=== PATIENT | male | born 1940 | race Caucasian/White ===

== ENCOUNTER 2020-11-24 10:54 | Emergency (ER) | payer MEDICARE, OTHER ==
[~2020-11-24 10:54] MED LIST: COREG 6.25MG6.25 MG PO; DULOXETINE HCL20 MG PO; GLIMEPIRIDE4 MG PO; KEFLEX500 MG PO; LASIX40 MG PO; NORCO 5/3251 EACH PO; NORVASC5 MG PO; PLAVIX75 MG PO; PRINIVIL20 MG PO; SPS15 GM/60 M PO; SYNTHROID50 MCG PO
[2020-11-24 12:39] LABS: CORONAVIRUS 2019 SARS-COV-2 NEGATIVE (NEGATIVE); INFLUENZA A NAA NEGATIVE (NEGATIVE)
[2020-11-24 13:10] LABS: BASOPHIL 0.5 % (0-2); EOSINOPHIL 6.9 % (0-7); HCT 41.6 % (42.0-52.0); HGB 13.1 g/dl (13.2-18.0); LYMPHOCYTE 17.1 % (15-48); MCHC 31.5 g/dL (32.0-36.0); MCV 101.5 fL (78.0-100.0); MONOCYTE 7.9 % (0-12); MPV 11.8 fL (6.0-9.5); NEUTROPHIL 67.1 % (41-80); NRBC 0; PLT 176 K/uL (150-400); RDW 14.6 % (11.5-14.0); WBC 10.4 K/uL (4.0-10.5)
[2020-11-24 13:31] LABS: INR 1.15 (0.9-1.2); PTT 29.3 SECONDS (22.2-34.7)
[2020-11-24 13:35] LABS: IRON % SATURATION 42.3 %SAT (20-50)
[2020-11-24 13:47] LABS: PRO-BNP 1671 pg/mL (<450)
[2020-11-24 13:53] LABS: ALBUMIN 3.7 g/dL (3.4-5.0); BILIRUBIN - TOTAL 0.4 mg/dL (0.2-1.0); BUN/CREAT RATIO (CALC) 16.6 RATIO; CREATININE 3.31 mg/dL (0.67-1.17); GLOBULIN (CALCULATION) 3.1 g/dL; MAGNESIUM 2.2 mg/dL (1.8-2.4); PHOSPHORUS 4.6 mg/dL (2.6-4.7); POTASSIUM 5.8 mmol/L (3.5-5.1); TOTAL PROTEIN 6.8 g/dL (6.4-8.2)
== END 2020-11-24 16:00 | disposition home or self-care (01) ==
LOC: FER 10:54
PROVIDERS: Emergency Medicine
DX: E87.6 Hypokalemia (principal); I12.9 Hypertensive chronic kidney disease with stage 1 through stage 4 chronic kidney disease, or unspecified chronic kidney disease; N18.4 Chronic kidney disease, stage 4 (severe); I44.7 Left bundle-branch block, unspecified; I49.3 Ventricular premature depolarization; Z20.822 Contact with and (suspected) exposure to COVID-19
CPT/HCPCS: 36415; 71045; 80053; 82550; 82728; 83540; 83550; 83605; 83615; 83735; 83880; 84100; 84145; 84443; 84484; 85025; 85610; 85730; 93005; 94664; U0002

== ENCOUNTER 2021-03-11 08:50 | Emergency (ER) | payer MEDICARE, OTHER ==
[2021-03-11 09:35] LABS: BASOPHIL 0.2 % (0-2); EOSINOPHIL 0.2 % (0-7); HGB 12.1 g/dl (13.2-18.0); LYMPHOCYTE 6.3 % (15-48); MCHC 30.3 g/dL (32.0-36.0); MCV 105.8 fL (78.0-100.0); MONOCYTE 9.1 % (0-12); MPV 12.7 fL (6.0-9.5); NEUTROPHIL 83.3 % (41-80); NRBC 0; PLT 143 K/uL (150-400); RBC 3.78 M/uL (4.70-6.00); RDW 14.6 % (11.5-14.0); WBC 16.4 K/uL (4.0-10.5)
[2021-03-11 09:46] LABS: ALBUMIN 3.5 g/dL (3.4-5.0); BILIRUBIN - TOTAL 0.4 mg/dL (0.2-1.0); CREATININE 4.56 mg/dL (0.67-1.17); GLOBULIN (CALCULATION) 3.5 g/dL
[2021-03-11 10:06] LABS: POTASSIUM 6.6 mmol/L (3.5-5.1)
[2021-03-11 10:45] LABS: CORONAVIRUS 2019 SARS-COV-2 NEGATIVE (NEGATIVE); INFLUENZA A NAA NEGATIVE (NEGATIVE)
== END 2021-03-11 18:00 | disposition other institution (70) ==
LOC: FER 08:50 → FTCU 12:40 → FER 18:00
PROVIDERS: Emergency Medicine
DX: J96.91 Respiratory failure, unspecified with hypoxia (principal); J44.1 Chronic obstructive pulmonary disease with (acute) exacerbation; N18.9 Chronic kidney disease, unspecified; E87.5 Hyperkalemia; J90 Pleural effusion, not elsewhere classified; I25.2 Old myocardial infarction; F17.200 Nicotine dependence, unspecified, uncomplicated; Z20.822 Contact with and (suspected) exposure to COVID-19
CPT/HCPCS: 36415; 36600; 71045; 71250; 80053; 82803; 83605; 83880; 84132; 84145; 84484; 85025; 85379; 87040; 93005; 94664; J0610; J2543; J2930; U0002

== ENCOUNTER 2021-03-28 23:04 | Emergency (ER) | payer MEDICARE, OTHER ==
[2021-03-29 01:11] LABS: BASOPHIL 0.5 % (0-2); EOSINOPHIL 4.9 % (0-7); HCT 35.6 % (42.0-52.0); HGB 11.3 g/dl (13.2-18.0); LYMPHOCYTE 18.7 % (15-48); MCH 32.6 pg (25.0-31.0); MCHC 31.7 g/dL (32.0-36.0); MCV 102.6 fL (78.0-100.0); MONOCYTE 10.9 % (0-12); NEUTROPHIL 63.7 % (41-80); NRBC 0; PLT 171 K/uL (150-400); RBC 3.47 M/uL (4.70-6.00); RDW 14.3 % (11.5-14.0); WBC 8.4 K/uL (4.0-10.5)
[2021-03-29 01:27] LABS: ALBUMIN 3.1 g/dL (3.4-5.0); BILIRUBIN - TOTAL 0.3 mg/dL (0.2-1.0); BUN/CREAT RATIO (CALC) 11.7 RATIO; CREATININE 3.58 mg/dL (0.67-1.17); MAGNESIUM 2.3 mg/dL (1.8-2.4); PHOSPHORUS 5.4 mg/dL (2.6-4.7); TOTAL PROTEIN 7.1 g/dL (6.4-8.2)
[2021-03-29] MEDS ORDERED: DIAZEPAM 5MG TAB5 MG PO (03:04)
== END 2021-03-29 03:34 | disposition home or self-care (01) ==
LOC: FER 23:04
PROVIDERS: Emergency Medicine Emergency Medical Services
DX: R07.89 Other chest pain (principal); R25.2 Cramp and spasm; I44.7 Left bundle-branch block, unspecified; I25.2 Old myocardial infarction; E11.22 Type 2 diabetes mellitus with diabetic chronic kidney disease; N18.6 End stage renal disease; F17.210 Nicotine dependence, cigarettes, uncomplicated; Z99.2 Dependence on renal dialysis; Z95.5 Presence of coronary angioplasty implant and graft; Z87.09 Personal history of other diseases of the respiratory system
CPT/HCPCS: 36415; 36600; 71045; 80053; 82803; 83735; 83880; 84100; 84484; 85025; 94640; 94664; 94760; J3360; J7120

== ENCOUNTER 2021-05-22 20:20 | Emergency (ER) | payer MEDICARE, OTHER ==
[~2021-05-22 20:20] MED LIST changes: +DIAZEPAM 5MG TAB5 MG PO
[2021-05-23] MEDS ORDERED: KEFLEX250 MG PO (00:39)
== END 2021-05-23 00:50 | disposition home or self-care (01) ==
LOC: FER 20:20
DX: S81.801A Unspecified open wound, right lower leg, initial encounter (principal); T82.43XA Leakage of vascular dialysis catheter, initial encounter; E11.22 Type 2 diabetes mellitus with diabetic chronic kidney disease; I12.0 Hypertensive chronic kidney disease with stage 5 chronic kidney disease or end stage renal disease; N18.6 End stage renal disease; I25.10 Atherosclerotic heart disease of native coronary artery without angina pectoris; F17.210 Nicotine dependence, cigarettes, uncomplicated; Z99.2 Dependence on renal dialysis; X58.XXXA Exposure to other specified factors, initial encounter
CPT/HCPCS: 73590

== ENCOUNTER 2021-07-10 22:52 | Day surgery (SDCO) | payer MEDICARE, OTHER ==
[~2021-07-10] VITALS: Ht 177.8 cm; Wt 87.5 kg
[~2021-07-10 22:52] MED LIST changes: +KEFLEX250 MG PO
[2021-07-11 00:18] LABS: BASOPHIL 0.1 % (0-2); HCT 38.8 % (42.0-52.0); HGB 11.9 g/dl (13.2-18.0); LYMPHOCYTE 5.5 % (15-48); MCH 31.5 pg (25.0-31.0); MCHC 30.7 g/dL (32.0-36.0); MCV 102.6 fL (78.0-100.0); MONOCYTE 11.8 % (0-12); MPV 12.1 fL (6.0-9.5); NEUTROPHIL 81.2 % (41-80); NRBC 0; PLT 130 K/uL (150-400); RBC 3.78 M/uL (4.70-6.00); RDW 13.8 % (11.5-14.0); WBC 14.4 K/uL (4.0-10.5)
[2021-07-11 00:46] LABS: ALBUMIN 3.3 g/dL (3.4-5.0); BILIRUBIN - TOTAL 0.4 mg/dL (0.2-1.0); BUN/CREAT RATIO (CALC) 9.6 RATIO; CREATININE 3.34 mg/dL (0.67-1.17); GLOBULIN (CALCULATION) 4.1 g/dL; POTASSIUM 3.7 mmol/L (3.5-5.1); TOTAL PROTEIN 7.4 g/dL (6.4-8.2)
[2021-07-11] MEDS ORDERED: PROAMATINE5 MG PO (14:59)
[2021-07-11] MEDS ORDERED: TRAMADOL HCL50 MG PO (15:00)
[2021-07-11] MEDS ORDERED: VITAMIN D2 PO (15:02)
[2021-07-11] MEDS ORDERED: VENTOLIN HFA IN18 GM INH (15:16)
[2021-07-11] MEDS ORDERED: ATARAX25 MG PO (15:18)
[2021-07-12 06:49] LABS: BASOPHIL 0.1 % (0-2); EOSINOPHIL 0.1 % (0-7); HCT 33.5 % (42.0-52.0); HGB 10.2 g/dl (13.2-18.0); LYMPHOCYTE 6.9 % (15-48); MCH 31.2 pg (25.0-31.0); MCHC 30.4 g/dL (32.0-36.0); MCV 102.4 fL (78.0-100.0); MONOCYTE 9.4 % (0-12); MPV 12.6 fL (6.0-9.5); NEUTROPHIL 82.9 % (41-80); NRBC 0; PLT 125 K/uL (150-400); RBC 3.27 M/uL (4.70-6.00); WBC 16.3 K/uL (4.0-10.5)
[2021-07-12 07:25] LABS: BUN/CREAT RATIO (CALC) 10.4 RATIO; CREATININE 4.73 mg/dL (0.67-1.17); POTASSIUM 4.4 mmol/L (3.5-5.1)
--- NOTE | 2021-07-12 17:36 | NUR ---
07/12/21 Mr. Mccray has displayed some confusion while hospitalized. Telephone conversation with Ms. Mccray: Mr. Mccray has 02 at 2 L; concentrator and portable tanks. He is able to independently perform ADLS and mobility. His [id number] takes him to dialysis. Ms. Mccray reports that he displays confusion at times. They do not receive any community services. Ms. Mccray reports to be able to meet their financial needs.
[2021-07-13] MEDS ORDERED: DUONEB 2.5-0.5M1 AMP INH (10:13)
[2021-07-13] MEDS ORDERED: PREDNISONE 20MG20 MG PO (10:13)
--- NOTE | 2021-07-13 14:30 | NUR ---
07/13/21 Patient was discharged home. No discharge planning needs were identified.
[2021-07-14 04:06] LABS: HBSAG SCREEN Negative (Negative)
== END 2021-07-13 13:20 | disposition home or self-care (01) ==
LOC: FER 22:52 → FOFB 07-11 06:45 → FMS 07-11 06:46
PROVIDERS: Emergency Medicine; Internal Medicine; Internal Medicine Nephrology; ADMIT Internal Medicine
DX: R07.89 Other chest pain (principal); I12.0 Hypertensive chronic kidney disease with stage 5 chronic kidney disease or end stage renal disease; E11.22 Type 2 diabetes mellitus with diabetic chronic kidney disease; N18.6 End stage renal disease; N17.9 Acute kidney failure, unspecified; D63.1 Anemia in chronic kidney disease; I25.10 Atherosclerotic heart disease of native coronary artery without angina pectoris; E11.51 Type 2 diabetes mellitus with diabetic peripheral angiopathy without gangrene; I25.2 Old myocardial infarction; I44.7 Left bundle-branch block, unspecified; R09.89 Other specified symptoms and signs involving the circulatory and respiratory systems; J44.1 Chronic obstructive pulmonary disease with (acute) exacerbation; E03.9 Hypothyroidism, unspecified; R41.0 Disorientation, unspecified; D72.829 Elevated white blood cell count, unspecified; Z20.822 Contact with and (suspected) exposure to COVID-19; F17.200 Nicotine dependence, unspecified, uncomplicated; F41.9 Anxiety disorder, unspecified; W19.XXXA Unspecified fall, initial encounter; Z86.73 Personal history of transient ischemic attack (TIA), and cerebral infarction without residual deficits; Z20.828 Contact with and (suspected) exposure to other viral communicable diseases; Z99.2 Dependence on renal dialysis; Z95.818 Presence of other cardiac implants and grafts; Z79.02 Long term (current) use of antithrombotics/antiplatelets; Z79.84 Long term (current) use of oral hypoglycemic drugs; Z79.899 Other long term (current) drug therapy
CPT/HCPCS: 36415; 71045; 71275; 80048; 80053; 82962; 83880; 84443; 84484; 85025; 85379; 87340; 93005; 94640; 94664; G0257; G0378; J2060; J2930; J7030; J7512; Q9967; U0002

== ENCOUNTER 2021-12-25 04:01 | Emergency (ER) | payer MEDICARE, OTHER ==
[~2021-12-25 04:01] MED LIST changes: +ATARAX25 MG PO; +DUONEB 2.5-0.5M1 AMP INH; +PREDNISONE 20MG20 MG PO; +PROAMATINE5 MG PO; +TRAMADOL HCL50 MG PO; +VENTOLIN HFA IN18 GM INH; +VITAMIN D2 PO
[2021-12-25 04:30] LABS: BASOPHIL 0.4 % (0-2); EOSINOPHIL 7.1 % (0-7); HCT 35.5 % (42.0-52.0); HGB 11.2 g/dl (13.2-18.0); LYMPHOCYTE 21.1 % (15-48); MCHC 31.5 g/dL (32.0-36.0); MCV 101.4 fL (78.0-100.0); MONOCYTE 9.6 % (0-12); MPV 11.9 fL (6.0-9.5); NEUTROPHIL 61.6 % (41-80); NRBC 0; PLT 145 K/uL (150-400); RDW 13.6 % (11.5-14.0); WBC 8.2 K/uL (4.0-10.5)
[2021-12-25 05:02] LABS: ALBUMIN 3.3 g/dL (3.4-5.0); BILIRUBIN - TOTAL 0.3 mg/dL (0.2-1.0); BUN/CREAT RATIO (CALC) 8.9 RATIO; CREATININE 4.83 mg/dL (0.67-1.17); GLOBULIN (CALCULATION) 3.1 g/dL; MAGNESIUM 2.4 mg/dL (1.8-2.4); PHOSPHORUS 4.4 mg/dL (2.6-4.7); POTASSIUM 4.2 mmol/L (3.5-5.1); TOTAL PROTEIN 6.4 g/dL (6.4-8.2)
[2021-12-25 05:21] LABS: LACTIC ACID 1.1 mmol/L (0.4-1.9)
[2021-12-25 06:02] LABS: INR 1.02 (0.9-1.2); PROTHROMBIN TIME 12.8 SECONDS (11.8-13.4); PTT 28.2 SECONDS (24.4-34.7)
[2021-12-25 06:03] LABS: D-DIMER 1.27 ug/mLFEU (0.00-0.41)
[2021-12-25] MEDS ORDERED: PREDNISONE 20MG20 MG PO (07:58)
== END 2021-12-25 08:20 | disposition home or self-care (01) ==
LOC: FER 04:01
PROVIDERS: Emergency Medicine Emergency Medical Services
DX: R06.02 Shortness of breath (principal); E11.22 Type 2 diabetes mellitus with diabetic chronic kidney disease; I12.0 Hypertensive chronic kidney disease with stage 5 chronic kidney disease or end stage renal disease; N18.6 End stage renal disease; J44.9 Chronic obstructive pulmonary disease, unspecified; F17.210 Nicotine dependence, cigarettes, uncomplicated; Z79.84 Long term (current) use of oral hypoglycemic drugs; Z99.2 Dependence on renal dialysis; Z20.822 Contact with and (suspected) exposure to COVID-19
CPT/HCPCS: 36415; 36600; 71045; 71275; 80053; 82803; 83605; 83735; 83880; 84100; 84145; 84484; 85025; 85379; 85610; 85730; 87040; 93005; 94640; 94664; 94762; J2930; Q9967; U0002

== ENCOUNTER 2022-03-05 02:25 | Emergency (ER) | payer MEDICARE, OTHER ==
[2022-03-05 03:01] LABS: BASOPHIL 0.6 % (0-2); EOSINOPHIL 9.1 % (0-7); HCT 36.3 % (42.0-52.0); HGB 11.3 g/dl (13.2-18.0); LYMPHOCYTE 18.2 % (15-48); MCH 31.7 pg (25.0-31.0); MCHC 31.1 g/dL (32.0-36.0); MONOCYTE 10.7 % (0-12); MPV 12.1 fL (6.0-9.5); NEUTROPHIL 61.1 % (41-80); NRBC 0; PLT 147 K/uL (150-400); RBC 3.56 M/uL (4.70-6.00); RDW 13.6 % (11.5-14.0); WBC 8.8 K/uL (4.0-10.5)
[2022-03-05 03:03] LABS: ALBUMIN 3.3 g/dL (3.4-5.0); BILIRUBIN - TOTAL 0.5 mg/dL (0.2-1.0); BUN/CREAT RATIO (CALC) 8.1 RATIO; CREATININE 4.83 mg/dL (0.67-1.17); GLOBULIN (CALCULATION) 3.9 g/dL; MAGNESIUM 2.1 mg/dL (1.8-2.4); POTASSIUM 3.5 mmol/L (3.5-5.1); TOTAL PROTEIN 7.2 g/dL (6.4-8.2)
[2022-03-05 03:39] LABS: CORONAVIRUS 2019 SARS-COV-2 NEGATIVE (NEGATIVE); INFLUENZA A NAA NEGATIVE (NEGATIVE)
[2022-03-05] MEDS ORDERED: PREDNISONE 20MG20 MG PO (05:17)
[2022-03-05] MEDS ORDERED: AZITHROMYCIN250 MG PO (05:17)
== END 2022-03-05 06:21 | disposition home or self-care (01) ==
LOC: FER 02:25
PROVIDERS: Internal Medicine
DX: J44.1 Chronic obstructive pulmonary disease with (acute) exacerbation (principal); M50.30 Other cervical disc degeneration, unspecified cervical region; I25.10 Atherosclerotic heart disease of native coronary artery without angina pectoris; I13.2 Hypertensive heart and chronic kidney disease with heart failure and with stage 5 chronic kidney disease, or end stage renal disease; E11.22 Type 2 diabetes mellitus with diabetic chronic kidney disease; N18.6 End stage renal disease; I50.9 Heart failure, unspecified; F17.210 Nicotine dependence, cigarettes, uncomplicated; Z20.822 Contact with and (suspected) exposure to COVID-19; Z28.310 Unvaccinated for COVID-19; Z99.2 Dependence on renal dialysis; Z79.84 Long term (current) use of oral hypoglycemic drugs
CPT/HCPCS: 36415; 36600; 71045; 71250; 72125; 80053; 82803; 83605; 83735; 83880; 84145; 84484; 85025; 93005; 94010; 94640; 94664; J2930; U0002